=== PATIENT | female | born 1970 | race Caucasian/White ===

== ENCOUNTER 2019-08-24 11:46 | Day surgery (SDC) | payer MEDICAID ==
[~2019-08-24] VITALS: Ht 165.1 cm; Wt 72.6 kg
[2019-08-24] MEDS ORDERED: ONDANSETRON HCL 4 MG/2 ML VIAL IVP PRN (15:15)
[2019-08-24] MEDS ORDERED: HYDROmorphone 2 MG/ML VIAL IVP PRN ×2 (15:15)
[2019-08-24] MEDS ORDERED: NS IRRIG SOLN 1000 ML IR ONE (15:16)
[2019-08-24] MEDS ORDERED: DEXAMETHASONE SOD PHOSPHATE 4 MG/ML VIAL ONE (15:16)
[2019-08-24] MEDS ORDERED: LR 1,000 ML IV.SOLN IV ONE (15:16)
[2019-08-24] MEDS ORDERED: PROPOFOL 200MG/ 20ML VIAL (DIPRIVAN) IV ONE (15:16)
[2019-08-24] MEDS ORDERED: SEVOFLURANE 15 MIN GAS INH ONE (15:16)
[2019-08-24] MEDS ORDERED: fentaNYL CITRATE/PF 100 MCG/2 ML AMP IVP ONE (15:16)
[2019-08-24] MEDS: HYDROmorphone 1 MG INJ. 1 MG/ML AMPUL ONE ×5 (15:27→15:47)
[2019-08-24 16:39] VITALS: BP_SYST 136
== END 2019-08-24 17:15 | disposition home or self-care (01) ==
LOC: SDS 11:46 → SMU 11:47 → SDS 17:15
PROVIDERS: ATTEND Obstetrics & Gynecology
DX: N95.0 Postmenopausal bleeding (principal); Z11.59 Encounter for screening for other viral diseases; Z90.49 Acquired absence of other specified parts of digestive tract; Z85.3 Personal history of malignant neoplasm of breast
CPT/HCPCS: 58558; 88305; C9803; J1100; J1170; J2704; J3010; J7120